=== PATIENT | male | born 1995 | race Caucasian/White ===

== ENCOUNTER → 2016-02-25 | Outpatient (CLI) | payer BC, OTHER ==
[~2016-02-25] MED LIST: ACET325T96 PO; ASPI325T45 PO; CLC100X PO; GABA-112 PO; LSN5 PO; MELA1TAB49 PO; METO25TA56 PO; METO50TA16 PO; MIRT15TA2 PO; PANT40TA PO
== END | disposition home or self-care (01) ==
LOC: C.LABBFT 08:10
PROVIDERS: ATTEND Nurse Practitioner
DX: R51 Headache (principal)

== ENCOUNTER → 2016-03-15 | Outpatient (CLI) | payer BC ==
--- NOTE | 2016-03-15 14:01 | DIAGNOSTIC IMAGING REPORT ---
CT SCAN OF THE LEFT UPPER EXTREMITY WITHOUT IV CONTRAST CLINICAL HISTORY: Forearm fracture. Wrist dysfunction. COMPARISON STUDY: No priors. TECHNIQUE: CT scan of the left forearm is performed from the distal humerus to the hand. Images are reviewed in the axial, sagittal, and coronal planes. IV contrast was not administered for this examination. CT DOSE: 378.97 mGy.cm FINDINGS: There is disuse osteopenia. The distal humerus is intact and no radial fracture is seen. A buttress plate with at least 8 cortical lag screws is present along the posterior ulna, transfixing a horizontally oriented fracture through the proximal to mid shaft. The orthopedic hardware appears intact. There is heterotopic bone formation identified around the fracture site throughout the interosseous space bridging to the radius. Nonspecific lucencies are identified within the heterotopic bone formation. There is complete bony bridging with incomplete cortical fusion of the fragments. The elbow and wrist joints are grossly maintained. The overlying soft tissues are normal in appearance. IMPRESSION: 1. Disuse osteopenia, with postoperative changes from open reduction and internal fixation of an ulnar diaphyseal fracture as above. The orthopedic hardware appears intact. 2. There is complete bony bridging with incomplete cortical fusion of the fracture fragments. 3. There is exuberant callus/heterotopic bone formation identified around the fracture. This may cause limited range of motion, or could potentially impinge on the interosseous nerves. Clinical correlation will be required. 4. No additional fracture is seen. Dictated: 03/15/2016 1:48 PM Transcribed: 03/15/2016 2:00 PM Hanny Electronically signed by: Charles Contreras M.D. 03/15/2016 2:04 PM Dictated Date/Time: 03/15/2016 1:48 PM
== END | disposition home or self-care (01) ==
LOC: C.CTS 12:45
PROVIDERS: ATTEND Orthopaedic Surgery
DX: S62.002D Unspecified fracture of navicular [scaphoid] bone of left wrist, subsequent encounter for fracture with routine healing (principal); X58.XXXD Exposure to other specified factors, subsequent encounter; M85.80 Other specified disorders of bone density and structure, unspecified site

== ENCOUNTER 2016-03-20 14:49 | Emergency (ER) | payer BC ==
[~2016-03-20] VITALS: Ht 175.3 cm; Wt 98.4 kg
[~2016-03-20 14:49] MED LIST changes: -LSN5 PO; -OPTIRAY 320 IV PRN
[2016-03-20 14:52] VITALS: TEMP 36.7; Ht 175.3 cm; Wt 98.4 kg
[2016-03-20] MEDS ORDERED: LSN5 PO (15:33)
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
[2016-03-20 16:24] VITALS: BP 129/81; PULSE 101; O2SAT 97
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
== END 2016-03-20 16:40 | disposition short-term general hospital (02) ==
LOC: C.EDB 14:50
DX: S06.5X0A Traumatic subdural hemorrhage without loss of consciousness, initial encounter (principal); X58.XXXA Exposure to other specified factors, initial encounter; Z93.2 Ileostomy status

== ENCOUNTER → 2016-03-20 | Outpatient (CLI) | payer BC ==
[~2016-03-20] MED LIST changes: +OPTIRAY 320 IV PRN
--- NOTE | 2016-03-20 14:13 | DIAGNOSTIC IMAGING REPORT ---
HEAD CTA HISTORY: Acute headaches. Concussion. TECHNIQUE: Multiaxial CT images of the head were performed both before and after the intravenous administration of contrast to evaluate the major cerebral vessels. Maximum intensity projection images were also obtained. COMPARISON: Head CT 11/16/2013. FINDINGS: There is a large right frontoparietal acute to subacute subdural hematoma. This demonstrates a maximal thickness of 2.5 cm. This results in 9 mm of left midline shift. Mild mass effect along the right lateral ventricle. Trace subarachnoid hemorrhage at the right high convexity. Visualized intracranial internal carotid arteries, distal vertebral arteries, and basilar artery are widely patent. 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 The hypoplastic distal left vertebral artery terminates in the left posterior inferior cerebellar artery. There is also hypoplastic right segment. Significant mass effect along the right frontal lobe. No acute infarct or mass identified. IMPRESSION: 1. Large right frontoparietal acute to subacute subdural hematoma which results in 9 mm of left midline shift. 2. Trace subarachnoid hemorrhage at the right high convexity. 3. No significant stenosis, occlusion, or aneurysm within the [place]. 4. These findings were discussed with the patient's network lead, Annabelgurinder Peck at 2:30 PM on 03/20/2016. Electronically signed by: Mino Beltran M.D. 03/20/2016 2:57 PM Dictated Date/Time: 03/20/2016 2:04 PM
--- NOTE | 2016-03-20 14:14 | DIAGNOSTIC IMAGING REPORT ---
CT ANGIOGRAPHY OF THE NECK WITH CONTRAST CLINICAL HISTORY: Acute headache status post concussion. COMPARISON STUDY: Cervical spine CT November 16, 2013. Technique: CT angiography of the carotid and vertebral arteries was obtained using [employer] IV and 3D reconstruction on an independent workstation. NASCET criteria was utilized. CT DOSE: 1145.06 mGy.cm Findings: The thoracic aortic stent graft is partially imaged on this exam. Visualized portions are unchanged since CT of October 30, 2015. The bilateral common carotid, internal carotid and vertebral arteries are patent. There is no evidence for dissection, stenosis or vessel occlusion. The right vertebral artery is dominant. The left vertebral artery terminates in PICA. No cervical spine fracture is identified. There is no hematoma or mass within the neck. No enlarged cervical lymph nodes are present. The parotid and submandibular glands are normal. The head CT will be reported separately. IMPRESSION: 1. Unremarkable CTA of the neck. 2. No cervical spine fracture. Electronically signed by: Eldon Elena M.D. 03/20/2016 2:13 PM Dictated Date/Time: 03/20/2016 2:04 PM
== END | disposition home or self-care (01) ==
LOC: C.CTS 13:21
PROVIDERS: ATTEND Internal Medicine
DX: R51 Headache (principal); S06.5X9A Traumatic subdural hemorrhage with loss of consciousness of unspecified duration, initial encounter; X58.XXXA Exposure to other specified factors, initial encounter